=== PATIENT | male | born 1955 | race Caucasian/White ===

== ENCOUNTER → 2020-03-13 12:03 | Outpatient (CLI) | payer MEDICARE, SELFPAY ==
--- NOTE | 2020-03-21 17:06 | STRESSREP ---
Stress Test Report Date: 03/13/2020 Procedure: Exercise tolerance test Indications: Chest pain Consent: Per the patient Procedure: The patient exercised on a Rafa protocol for 10 minutes and 3 seconds achieving a peak heart rate of 162 bpm (103% predicted maximal heart rate) with a peak blood pressure 148/70 mmHg and a peak MET capacity of approximately 11.8 MET's. The baseline ECG demonstrated normal sinus rhythm, right bundle branch block. The peak exercise ECG demonstrated sinus tachycardia with no significant ST-T changes suggestive of ischemia. [There were no cardiac dysrhythmias pretest, during exercise, or recovery]. The functional capacity was considered excellent for age. The patient had chest tightness with exertion that resolved in the recovery period. The examination was discontinued secondary to achieving target heart rate. Patient also had moderate shortness of breath and dizziness at peak exercise. Impression: 1. Technically adequate (percent predicted maximal heart rate greater than 85%) exercise tolerance test 2. Stress test is positive for exercise-induced chest pain. 3. Stress test test is negative for exercise-induced EKG changes of ischemia. 4. Functional capacity is excellent for age This note was generated with [employer] software. It may contain incorrect words, spelling, and punctuation that were not noted in checking the note before signing.
== END ==
PROVIDERS: PCP Internal Medicine; Referring Provider Internal Medicine; Visit Provider Internal Medicine
DX: R07.9 Chest pain, unspecified (principal)
CPT/HCPCS: 93017

== ENCOUNTER → 2020-05-12 06:51 | Outpatient (CLI) | payer MEDICARE, SELFPAY ==
--- NOTE | 2020-05-13 12:30 | STRESSREP_ITS ---
Stress Test Report Date: 05/12/2020 Procedure: Exercise tolerance test/imaging study Indications: Chest pain Consent: Per the patient Procedure: The patient exercised on a Rafa protocol for 8 minutes and 30 seconds achieving a peak heart rate of 136 bpm (87% predicted maximal heart rate) with a peak blood pressure 132/64 mmHg and a peak MET capacity of 10.1 METs. The baseline ECG demonstrated normal sinus rhythm, right bundle branch block. The peak exercise ECG demonstrated sinus tachycardia with about half a millimeter horizontal ST depressions in leads V2 and V3 and about [address] depression in V1. There is also T wave inversions in leads V2 and V3 with exercise. The T wave inversions are a nonspecific finding. The ST depression in V1 to V3 is borderline and in the presence of right bundle branch block not very specific. EKG during recovery revealed no significant ischemic changes [There were no cardiac dysrhythmias pretest, during exercise, or recovery]. The functional capacity was considered normal for age. Patient had mild chest discomfort in the mid chest at peak exertion. The examination was discontinued secondary to dyspnea. Impression: 1. Technically adequate (percent predicted maximal heart rate greater than 85%) exercise tolerance test 2. Stress test is negative for exercise-induced EKG changes of ischemia 3. The test test is positive for exercise-induced chest pain 4. Functional capacity is normal for age 5. Nuclear images pending Myocardial perfusion imaging study: Technique: The patient was injected with 11.2 mCi of technetium 99m Cardiolite and subsequently rest SPECT Cardiolite nuclear imaging was obtained in the horizontal long, vertical long, and short axis views. The patient exercised on a Rafa protocol. Please see above for details. The patient was injected with 33.5 mCi of technetium 99m Cardiolite and subsequently stress SPECT Cardiolite nuclear imaging was obtained in the horizontal long, vertical long, and short axis views. A gated Cardiolite study at peak stress was obtained. Interpretation: Rest and stress SPECT Cardiolite nuclear imaging status post realignment, normalization, and attenuation correction, demonstrates overall normal myocardial radioisotope uptake. The gated Cardiolite study demonstrates no significant regional wall motion abnormalities. The reported LVEF is 69%. Impression: 1. There is no evidence of significant ischemia or infarction. 2. The gated Cardiolite study reports an LVEF of 69%. This note was generated with [employer] software. It may contain incorrect words, spelling, and punctuation that were not noted in checking the note before signing.
== END ==
PROVIDERS: PCP Internal Medicine; Referring Provider Internal Medicine; Visit Provider Internal Medicine
DX: R07.9 Chest pain, unspecified (principal); R00.2 Palpitations
CPT/HCPCS: 78452; 93017; A9500; A4216

== ENCOUNTER 2020-06-09 12:44 | Emergency (ER) | payer MEDICARE, SELFPAY ==
[2020-06-09 12:45] VITALS: BP 129/81; PULSE 58; RESP 18; TEMP 35.7; O2SAT 99; BMI 24.5
[2020-06-09 13:28] LABS: Bacteria 0 SEEN /hpf (None Seen); Mucous, Urine 0 SEEN /hpf (<or=2+); Squamous Epithelial Cells - UA 0 SEEN /hpf (0-5)
[2020-06-09 13:30] LABS: Color, Urine Yellow (Yellow); Glucose, Dipstick Normal (Normal); Ketone-Dipstick Negative (Negative); Leukocyte Esterase-Dipstick 25 /ul (Negative); Nitrite-Dipstick Negative (Negative); Occult Blood-Urine 250 /ul (Negative); Protein-Dipstick 15 mg/dl (Negative); Urine Bilirubin Dipstick Negative (Negative); Urine Clarity Sl. Cloudy (Clear); Urine Urobilinogen Normal (Normal)
[2020-06-09] MEDS: Ondansetron 4 MG/2 ML Vial IV ×2 (13:38→14:42)
[2020-06-09 13:40] LABS: Red Blood Cells-Urine 25-50 SEEN /hpf (0-5); White Blood Cells 0-5 SEEN /hpf (0-5)
[2020-06-09] MEDS: 0.9% Normal Saline 1,000 ML 125 ML IV (13:40)
[2020-06-09] MEDS: Ketorolac 15 MG/ML Vial IV (13:40)
[2020-06-09 13:49] LABS: Absolute Lymphocyte Count 2.91 X10^3/uL (0.83-4.51); Absolute Neutrophil Count 3.4 X10^3/uL (2.0-7.7); Basophil# 0.05 X10^3/uL; Basophil% 0.7 % (0-1); Eosinophil# 0.22 X10^3/uL; Hemoglobin 13.1 g/dL (13.0-16.5); Lymphocyte # 2.91 X10^3/ul (4.0); Lymphocyte % 39.9 % (19-41); Mean Corp Hgb Conc 33.6 g/dL (32-36); Mean Corpuscular Hgb 31.9 pg (27.0-32.0); Mean Corpuscular Volume 94.9 fL (80-94); Mean Platelet Vol. 10.4 fl (6.2-12.0); Monocyte# 0.69 X10^3/uL; Monocyte% 9.5 % (0-10); NRBC Flagged by Analyzer 0 % (0-5); Neutrophil # 3.41 X10^3/uL (2.7-7.7); Neutrophil % 46.6 % (47-70); Platelet Count 192 K/mm3 (150-450); RBC Distribution Width CV 12.6 % (11.6-14.6); Red Blood Count 4.11 M/mm3 (4.6-6.2); White Blood Count 7.3 K/mm3 (4.4-11.0)
--- NOTE | 2020-06-09 13:50 | CT_ITS ---
STUDY: CT ABDOMEN AND PELVIS WITHOUT CONTRAST REASON FOR EXAM: Male, 64 years old. RT FLANK PAIN X 2 HRS. HX OF [place] RADIATION DOSAGE (If Supplied By Facility): CTDIvol = ( 6.63 ) mGy, DLP = ( 336.19 ) mGycm TECHNIQUE: Transaxial images were obtained from the dome of the diaphragm to the symphysis pubis without oral contrast, and without intravenous contrast. Sagittal and coronal images were reconstructed. Individualized dose optimization techniques were used for this CT. COMPARISON: Comparison is made with prior study dated 12/08/2015. FINDINGS: Tiny calcified granuloma in the anterior aspect of the right lower lobe. The visualized portions of the heart are within normal limits. Normal liver. Normal gallbladder and extrahepatic biliary system. There are multiple benign calcified granulomata of the spleen. Normal pancreas. Normal bilateral adrenal glands. 3 small nonobstructive calculi are seen in the upper pole calyx of the right kidney. There is evidence of a 3 mm calculus in the proximal portion of the right ureter. Normal left kidney. Normal visualized stomach. Normal small intestine. Normal colon. The appendix is visualized and appears normal. There is scattered atherosclerotic calcification of the abdominal aorta, without a demonstrated aneurysm. Normal inferior vena cava. Normal retroperitoneum. Normal urinary bladder. There are central prostatic calcifications. There is a small umbilical hernia containing fat. There are mild degenerative changes of the visualized lumbar spine. CT/Abdomen/Pelvis without Cont IMPRESSION: 3 mm calculus in the proximal portion of the right ureter. 3 small nonobstructive calculi are seen in the upper pole calyx right kidney. Electronically Signed: Gómez Chopra, at 14:04 EST , Service support ,
[2020-06-09 14:02] LABS: Anion Gap 4 (5-15); BUN 16 mg/dL (7-18); BUN/Creat Ratio 13.9 RATIO (10-20); Calcium,Total 8.9 mg/dL (8.5-10.1); Chloride 110 mmol/L (98-107); Creatinine, Serum 1.15 mg/dL (0.70-1.30); EST Glomerular Filtration Rate 68 mL/min (>60); Est Glom Filt Rate - Afr Amer 82 mL/min (>60); Estimated Creatinine Clearance 62.78 ml/min; Glucose 87 mg/dL (74-106); Potassium 4.1 mmol/L (3.5-5.1); Sodium Level 141 mmol/L (136-145)
[2020-06-09] MEDS: Morphine 4 MG/ML Syringe IV (14:44)
[2020-06-09 14:45] VITALS: BP 125/79
--- NOTE | 2020-06-09 14:58 | ED.VISSUMM ---
- ER Visit Summary Date of Service: 06/09/20 Chief Complaint: [Right-sided flank pain] History of Present Illness: The patient is a 64 M [presents to the emergency department complaint of right-sided flank pain that started 2 hours ago. Patient states that he is noted some hematuria today. He has had some nausea with this pain. Patient did have history of kidney stones about 10 years ago. At that time patient had an 8 mm stone that required a stent being placed. Patient currently rates his pain a 7 out of 10. Patient denies any fevers. He denies recent illness.] Seen at urgent care initially today and referred to the emergency department. Physical Examination: [HEENT-PERRLA, EOMI. Cranial nerves II through XII grossly intact. TMs clear. Mucous membranes moist. No adenopathy. Cardiovascular-regular rate and rhythm without murmur or ectopy Lungs-clear to auscultation, chest wall stable without crepitus or subcu emphysema Abdomen-normoactive bowel sounds, soft. Patient has tenderness palpation over the right lower quadrant with some guarding. Patient has CVA tenderness on the right. There is no rebound, rigidity, or peritoneal signs. Extremities-intact ?4, normal range of motion, normal pulses, atraumatic] Test Results: [CBC with differential showing a 7.3, hemoglobin 13, hematocrit 39, plates 192. Chemistries unremarkable. Urinalysis showed 25-50 RBCs without signs of infection. CT flank showed a 3 mm kidney stone at the left proximal ureter.] Emergency Department Course and Treatment: [The line established on arrival. Patient was given Toradol 50 mg IV initially. Patient continues to have significant discomfort and was given 4 mg of morphine and 4 mg of Zofran. His pain is down to a 3 or 4 out of 10 currently.] Treatment Plan: [Patient will be given a prescription for Percocet and urine strainers. He will be referred to urology for follow-up. Based on the size of the stone he has a good chance of passing the stone. Patient advised to return if worsening pain, fever, vomiting, or condition should worsen anyway. Disposition: [Discharged home in stable condition] Impression: [Urolithiasis] This note was generated with [employer] software. It may contain incorrect words, spelling, and punctuation that were not noted in review of the chart prior to signing ED Disposition - Plan for ED Patient: Referrals: Aliyah Caballero MD [Primary Care Provider] -
--- NOTE | 2020-06-09 15:00 | ED.DEP ---
ED Disposition - Plan for ED Patient: Instructions: ED Kidney Stone w/ Colic Prescriptions: Oxycodone HCl/Acetaminophen [Percocet 5/325] 1 tab PO Q6H PRN PRN 5 Days #20 tab PRN Reason: Pain Score 6-10 Prescription Printed Referrals: Aliyah Caballero MD [Primary Care Provider] - Adam Horton MD [STAFF PHYSICIAN] - 3-5 Days
[2020-06-09 16:23] VITALS: BP 96/67; RESP 20
== END 2020-06-09 16:25 | disposition home or self-care (01) ==
LOC: ED 13:17
PROVIDERS: Emergency Provider Emergency Medicine; PCP Internal Medicine
DX: N20.1 Calculus of ureter (principal); Z87.442 Personal history of urinary calculi
CPT/HCPCS: 74176; 80048; 81001; 85025; 96361; 96374; 96375; 96376; 99283; J7030; A4216; J2405

== ENCOUNTER → 2020-06-26 15:15 | Outpatient (CLI) | payer MEDICARE, SELFPAY ==
[2020-06-09 12:45] VITALS: BMI 24.5
--- NOTE | 2020-06-26 15:19 | RAD_ITS ---
STUDY: X-RAY - ABDOMEN/PELVIS REASON FOR EXAM: Male, 64 years old. PAIN RIGHT SIDE, KNOWN KIDNEY STONE TECHNIQUE: Single AP view of the abdomen / pelvis. COMPARISON: CT 06/09/2020 FINDINGS: Normal visualized lung bases. There is an unremarkable bowel gas pattern. The visualized liver, spleen and kidneys are grossly normal in size and morphology. There are calcified phleboliths in the pelvis. Normal visualized osseous structures. RAD/Abdomen Single View IMPRESSION: Normal x-ray examination of the abdomen and pelvis. No definite renal or ureteral stone but there are multiple phleboliths in the pelvis. Electronically Signed: Segun Retana MD at 16:54 EST Tel , Service support ,
== END ==
PROVIDERS: PCP Internal Medicine; Referring Provider Nurse Practitioner Adult Health; Visit Provider Nurse Practitioner Adult Health
DX: N20.1 Calculus of ureter (principal)
CPT/HCPCS: 74018

== ENCOUNTER 2020-06-27 00:50 | Inpatient (IN) | payer MEDICARE, SELFPAY ==
[2020-06-27] VITALS (8 sets, daily range): BP systolic 88–137; BP diastolic 56–86; PULSE 54–81; RESP 16–18; TEMP 36–37; O2SAT 90–99; BMI 25.0; BMI 24.7; BMI 24.8
[2020-06-27 01:11] LABS: Absolute Lymphocyte Count 3.16 X10^3/uL (0.83-4.51); Absolute Neutrophil Count 2.6 X10^3/uL (2.0-7.7); Basophil# 0.04 X10^3/uL; Basophil% 0.6 % (0-1); Eosinophil# 0.37 X10^3/uL; Eosinophils% 5.2 % (0-5); Hematocrit 41.1 % (40-54); Hemoglobin 13.9 g/dL (13.0-16.5); Lymphocyte # 3.16 X10^3/ul (4.0); Lymphocyte % 44.3 % (19-41); Mean Corp Hgb Conc 33.8 g/dL (32-36); Mean Corpuscular Hgb 32.3 pg (27.0-32.0); Mean Corpuscular Volume 95.4 fL (80-94); Mean Platelet Vol. 10.1 fl (6.2-12.0); Monocyte# 0.93 X10^3/uL; NRBC Flagged by Analyzer 0 % (0-5); Neutrophil # 2.63 X10^3/uL (2.7-7.7); Neutrophil % 36.8 % (47-70); Platelet Count 207 K/mm3 (150-450); RBC Distribution Width CV 12.4 % (11.6-14.6); RBC Distribution Width SD 43.7 fl (35.1-43.9); Red Blood Count 4.31 M/mm3 (4.6-6.2); White Blood Count 7.1 K/mm3 (4.4-11.0)
[2020-06-27 01:11] LABS: Bacteria 0 SEEN /hpf (None Seen); Mucous, Urine 0 SEEN /hpf (<or=2+)
[2020-06-27 01:12] LABS: Color, Urine Yellow (Yellow); Glucose, Dipstick Normal (Normal); Ketone-Dipstick Negative (Negative); Leukocyte Esterase-Dipstick 25 /ul (Negative); Nitrite-Dipstick Negative (Negative); Occult Blood-Urine 250 /ul (Negative); Protein-Dipstick 30 mg/dl (Negative); Urine Bilirubin Dipstick Negative (Negative); Urine Clarity Sl. Cloudy (Clear); Urine Urobilinogen 1 mg/dl (Normal)
[2020-06-27 01:18] LABS: Red Blood Cells-Urine 25-50 SEEN /hpf (0-5); Squamous Epithelial Cells - UA 0-5 SEEN /hpf (0-5); White Blood Cells 5-10 SEEN /hpf (0-5)
--- NOTE | 2020-06-27 01:25 | ED.DCSUM_ITS ---
History of Present Illness Chief Complaint: Flank Pain Informant: Patient Onset: Today Context: Gradual Onset Timing: Continuous, Waxes and wanes Narrative: Patient is a 64-year-old male with recent diagnosis of right-sided 3 mm obstructing kidney stone 2 weeks ago presenting with worsening right-sided flank pain. He states for 10 days he was actually doing fine not having pain when yesterday his pain came back again. He followed up at his urologist office and was told if the pain becomes too severe he should come to the emergency room. Patient states the pain is now lower and more in his right lower abdomen r adiating to his testicles. It was in his back only before. He is having some mild hesitancy and hematuria. He denies any dysuria. He tried taking 2 x 5 mg Percocets earlier today with no relief of his pain so he came to the emergency room. He also had some nausea and took Zofran prior to arrival. Patient Nu[place] any fever or chills. He denies any chest pain, shortness breath difficulty breathing. Denies any changes bowel habits. No other complaints at this time. Past Medical History - Allergies and Home Meds Allergies/Adverse Reactions: Allergies Penicillins Allergy (Verified 06/09/20 12:47) [facility] [place] Primary Care Physician: Aliyah Caballero MD [Primary Care Provider] - Past Medical History: - - Kidney stones Lives: Spouse/ Significant Other Smoking Status: Current every day smoker Review of Systems General: Denies: Chills, Fever, Sweats Eyes: Denies: Visual changes - bilaterally, Diplopia ENT: Denies: Rhinorrhea, Sore throat Cardiovascular: Denies: Chest pain, Palpitations Respiratory: Denies: Dyspnea, Cough, Dyspnea on exertion Gastrointestinal: Reports: Abdominal pain, Nausea. Denies: Vomiting, Diarrhea, Melena, Hematochezia Genitourinary: Reports: Hematuria. Denies: Dysuria, Frequency Musculoskeletal: Denies: Back pain, Extremity Pain Skin: Denies: Rash, Wounds Neurological: Denies: Headache, Weakness, Numbness Physical Exam Vital Signs/Narrative: Vital Signs Temp Pulse Resp BP Pulse Ox 06/27/20 00:50 97.8 F 55 L 16 119/86 H 99 Inital Vital Signs reviewed: Yes General: Well nourished, Well developed, No Acute Distress, - - Uncomfortable appearing Head: Normocephalic, Atraumatic Eyes: Perrl, EOMI ENT: Moist mucous membranes, No rhinorrhea Neck: Supple, Nontender, No JVD Cardiovascular: Regular rate, Regular rhythm, No murmurs Respiratory: No distress, CTA bilaterally, Chest nontender Abdomen: Soft, Nontender, Nondistended, Normal bowel sounds. Negative for: Guarding, Rebound tenderness Back: Nontender, Normal Inspection. Negative for: CVA tenderness Extremities: Nontender, No edema Skin: Normal color, No rash Neurological: Alert, Oriented x3, Cranial nerves II-XII grossly intact, Normal Strength, Normal Sensation Psychological: Normal affect, Normal Mood Diagnostic/Tx/Re-eval Laboratory Data 06/27/20 06/27/20 06/27/20 00:50 00:50 01:05 WBC 7.1 RBC 4.31 L Hgb 13.9 Hct 41.1 MCV 95.4 H MCH 32.3 H MCHC 33.8 RDW Std Deviation 43.7 RDW Coeff of Chago 12.4 Plt Count 207 MPV 10.1 Immature Gran % (Auto) 0.100 Neut % (Auto) 36.8 L Lymph % (Auto) 44.3 H [place] % (Auto) 13.0 H Eos % (Auto) 5.2 H Baso % (Auto) 0.6 Absolute Neuts (auto) 2.6 Absolute Lymphs (auto) 3.16 Nucleated RBC % 0 Sodium 138 Potassium 3.9 Chloride 104 Carbon Dioxide 30.0 Anion Gap 4 L BUN 21 H Creatinine 1.18 Estim Creat Clear Calc 59.13 Est GFR (MDRD) Af Amer 80 Est GFR (MDRD) Non-Af 66 BUN/Creatinine Ratio 17.8 Glucose 93 Calcium 9.4 Urine Color Yellow Urine Clarity Sl. Cloudy Urine pH 6.0 Ur Specific [place] 1.020 Urine Protein 30 H Urine Glucose (UA) Normal Urine Ketones Negative Urine Occult Blood 250 H Urine Nitrite Negative Urine Bilirubin Negative Urine Urobilinogen 1 H Ur Leukocyte Esterase 25 H Urine RBC 25-50 SEEN Urine WBC 5-10 SEEN Ur Squamous Epith Cells 0-5 SEEN Urine Bacteria 0 SEEN Urine Mucus 0 SEEN - Medical Decision Making Evaluated for sudden onset right flank pain. He was recently diagnosed with a kidney stone and his pain is now migrated from his back and is more in his lower abdomen/groin. Patient tried taking Percocet at home but was not able to achieve adequate pain control so he came to the emergency room. He is hemodynamically stable. He has good distal pulses. Abdomen is soft and nontender. Is not have any peritoneal signs. Patient is given morphine for pain control. Urinalysis shows significant blood and consistent with ureterolithiasis. Patient is also given IV fluids and Toradol. He does require her second dose of morphine. Patient states his pain is suddenly gone shortly after this and feels that the stone is now passed into his bladder. Patient is counseled that that is a possibility however the stone could still be in his ureter. Is 3 mm and should pass spontaneously. Do not think repeat imaging is indicated at this time. He will follow-up with his urologist. Patient did drive here and is observed for at least 2 hours after receiving his last dose of morphine to ensure that he is safe to drive home. Patient is acting appropriately and does not seem impaired at all. Patient is counseled on signs and symptoms requiring return to the emergency room. Patient verbalizes agreement and understand this plan. Patient discharged home in stable and improved condition. ED Disposition - Plan for ED Patient: Disposition: Home or Assisted Living Diagnosis: Kidney stone on left side Instructions: ED Kidney Stone w/ Colic Referrals: Aliyah Caballero MD [Primary Care Provider] - Additional Instructions: I suspect your stone passed given how far down it was and your sudden resolution of symptoms. Please follow-up with your urologist as needed. Return the emergency room with any worsening symptoms.
[2020-06-27] MEDS: Ketorolac 15 MG/ML Vial IV (01:26)
[2020-06-27] MEDS: 0.9% Normal Saline 1,000 ML 999 ML IV (01:26)
[2020-06-27 01:27] LABS: Anion Gap 4 (5-15); BUN 21 mg/dL (7-18); BUN/Creat Ratio 17.8 RATIO (10-20); Calcium,Total 9.4 mg/dL (8.5-10.1); Chloride 104 mmol/L (98-107); Creatinine, Serum 1.18 mg/dL (0.70-1.30); EST Glomerular Filtration Rate 66 mL/min (>60); Est Glom Filt Rate - Afr Amer 80 mL/min (>60); Estimated Creatinine Clearance 59.13 ml/min; Glucose 93 mg/dL (74-106); Potassium 3.9 mmol/L (3.5-5.1); Sodium Level 138 mmol/L (136-145)
[2020-06-27] MEDS: Morphine 4 MG/ML Syringe IV ×2 (01:27→02:07)
--- NOTE | 2020-06-27 12:02 | PCM.HP.BLA ---
History and Physical Date of Admission: 06/27/20 I have ureteral stone. HPI: IVORY CERNA is a 64 year-old male established patient who is here for ureteral stone. The problem is on the right side. He first noticed the symptoms 1 month ago. This is not his first kidney stone. He is currently having flank pain and back pain. He denies having groin pain, nausea, vomiting, fever, and chills. Pain is occuring on the right side. He has never had surgical treatment for calculi in the past. He has not caught a stone in his urine strainer since his symptoms began. The stone is in The mid ureter. The stone is 3 mm . severe pain will admit to hospital ALLERGIES: Hay Fever Penicillin MEDICATIONS: Zyrtec 10 mg tablet 1 tablet PO Daily PRN Amlodipine Besylate 5 mg tablet 1 tablet PO Daily Aspirin Ec 81 mg tablet, delayed release 1 tablet PO Daily Atorvastatin Calcium 40 mg tablet 1 tablet PO Daily Cyclobenzaprine Hcl 10 mg tablet 1 tablet PO Q HS Gabapentin 300 mg capsule 2 capsule PO Q HS Ibuprofen 200 mg capsule 1 capsule PO Daily PRN Levothyroxine Sodium 100 mcg tablet 1 tablet PO Daily Ondansetron Odt 8 mg tablet,disintegrating 1 tablet PO BID PRN for nausea Oxycodone-Acetaminophen 5 mg-325 mg tablet 1 tablet PO Q 6 H PRN N20.1 ureteral stone pain, 3 days worth Pantoprazole Sodium 40 mg tablet, delayed release 1 tablet PO Daily Vitamin B12 1 PO Daily Vitamin D3 1 PO Daily PAST SURGICAL HISTORY: Colonoscopy Pneumococcal Vaccine Admin PAST MEDICAL HISTORY: Unspecified abdominal pain - 06/26/2020 Calculus of ureter - 06/12/2020 Actinic keratosis Age-related osteoporosis w/o current pathological fracture Alcohol abuse, uncomplicated Carpal tunnel syndrome, left upper limb Celiac disease Hyperlipidemia, unspecified Hypothyroidism, unspecified Male erectile dysfunction, unspecified Nontoxic multinodular goiter Other specified arthritis, unspecified site Raynaud's syndrome without gangrene Squamous cell carcinoma of skin, unspecified Ulcerative (chronic) proctitis with rectal bleeding Unspecified hearing loss, unspecified ear Immunizations: None FAMILY HISTORY: None SOCIAL HISTORY: Marital Status: Preferred Language: Vietnamese Current Smoking Status: Patient smokes. Tobacco Use Assessment Completed: Used Tobacco in last 30 days? Smoking cessation counseling was provided. Does not use smokeless tobacco. Does drink. Does not use drugs. Drinks 2 caffeinated drinks per day. Has not had a blood transfusion. REVIEW OF SYSTEMS: Constitutional: Patient denies fever, chills, weight loss, and weight gain. Gastrointestinal: Patient reports abdominal pain. Patient denies diarrhea, constipation, nausea, and vomiting. Genitourinary: Patient reports blood in the urine. Patient denies frequent urination, urinary retention, get up at night to void, leakage of urine, painful urination, frequent uti's, history of stones, difficulty starting stream, weak stream/scanty, and bedwetting. Musculoskeletal: Patient reports back pain. Patient denies gout. VITAL SIGNS: 06/27/2020 10:39 AM Weight 160 lb / 72.57 kg Height 67 in / 170.18 cm BP 100/80 mmHg BMI 25.1 kg/m? - BMI Counseling was provided. PHYSICAL EXAM: Constitutional: Well-nourished. No physical deformities. Normally developed. Good grooming. Neck: Neck symmetrical, not swollen. Normal tracheal position. Respiratory: No labored breathing, no use of accessory muscles. Cardiovascular: Normal temperature, normal extremity pulses, no swelling, no varicosities. Lymphatic: No enlargement of neck, axillae, groin. Skin: No paleness, no jaundice, no cyanosis. No lesion, no ulcer, no rash. Neurologic / Psychiatric: Oriented to time, oriented to place, oriented to person. No depression, no anxiety, no agitation. Gastrointestinal: No mass, no tenderness, no rigidity, non obese abdomen. Eyes: Normal conjunctivae. Normal eyelids. Ears, Nose, Mouth, and Throat: Left ear no scars, no lesions, no masses. Right ear no scars, no lesions, no masses. Nose no scars, no lesions, no masses. Normal hearing. Normal lips. Musculoskeletal: Normal gait and station of head and neck. PAST DATA REVIEWED: Source Of History: Patient Records Review: Previous Patient Records Urine Test Review: Urinalysis PROCEDURES: Notes: Having trouble urinating. No U/A. ASSESSMENT: ICD-10 Details 1 Calculus of ureter - N20.1 PLAN: Document Letter(s): Created for Patient: Clinical Summary Notes: had negative nuclear stress test had abnormal EKG admit to hospital for stone and plan to take to Surgery.
[2020-06-27] MEDS: oxyCODONE 5 MG Tablet PO (12:44)
[2020-06-27] MEDS: 0.9% Normal Saline 1,000 ML 75 ML IV ×2 (12:44→22:51)
[2020-06-27] MEDS: Ciprofloxacin 400 MG/200 ML BAG 200 MG IV ×2 (12:49→22:05)
[2020-06-27] MEDS: 0.9% Saline Lock 10 ML Syringe IV (12:52)
--- NOTE | 2020-06-27 16:17 | NURSING ---
DR. GARCIA PAGED REGARDING BP PT DOES REPORT DIZZINESS. PER PT THIS HAS BEEN ONGOING AND HAVING EPISODES OF INABILITY TO AMBULATE BC DIZZINESS AT HOME. STATES WAS SEEING A DR. MOORE SWITCHGEAR REPAIRER AT [facility]. AWARE PER DR. GARCIA'S OFFICE PT WAS SUPPOSE TO HAVE TEST DONE TOMORROW WITH HIS SWITCHGEAR REPAIRER.
[2020-06-27] MEDS: Lactated Ringers 1,000 ML 999 ML IV (19:52)
[2020-06-27] MEDS: Gabapentin 600 MG Tablet PO (22:50)
[2020-06-28] VITALS (13 sets, daily range): BP systolic 98–119; BP diastolic 59–85; PULSE 52–97; RESP 16–18; TEMP 36.3–37.1; O2SAT 94–100; BMI 24.7; BMI 24.8
--- NOTE | 2020-06-28 05:00 | EKG12_ITS ---
Test Reason : PRE-OP Blood Pressure : / mmHG Vent. Rate : 057 BPM Atrial Rate : 057 BPM P-R Int : 172 ms QRS Dur : 086 ms QT Int : 436 ms P-R-T Axes : 076 019 061 degrees QTc Int : 424 ms Sinus bradycardia Indeterminate axis Low voltage QRS Borderline ECG Confirmed by GELY BATISTA, MINOO ([id number]), film and video editor ELDER MCFARLAND ([id number]) on 06/29/2020 9:58:05 AM Referred By: RADHA Confirmed By:MINOO HONG MD
[2020-06-28 06:55] LABS: Absolute Lymphocyte Count 2.48 X10^3/uL (0.83-4.51); Absolute Neutrophil Count 2.7 X10^3/uL (2.0-7.7); Basophil# 0.04 X10^3/uL; Basophil% 0.6 % (0-1); Eosinophil# 0.33 X10^3/uL; Eosinophils% 5.1 % (0-5); Hematocrit 39.6 % (40-54); Hemoglobin 12.9 g/dL (13.0-16.5); Lymphocyte # 2.48 X10^3/ul (4.0); Lymphocyte % 38.6 % (19-41); Mean Corp Hgb Conc 32.6 g/dL (32-36); Mean Corpuscular Hgb 31.5 pg (27.0-32.0); Mean Corpuscular Volume 96.8 fL (80-94); Mean Platelet Vol. 9.9 fl (6.2-12.0); Monocyte# 0.83 X10^3/uL; Monocyte% 12.9 % (0-10); NRBC Flagged by Analyzer 0 % (0-5); Neutrophil # 2.74 X10^3/uL (2.7-7.7); Neutrophil % 42.6 % (47-70); Platelet Count 188 K/mm3 (150-450); RBC Distribution Width CV 12.6 % (11.6-14.6); RBC Distribution Width SD 45.5 fl (35.1-43.9); Red Blood Count 4.09 M/mm3 (4.6-6.2); White Blood Count 6.4 K/mm3 (4.4-11.0)
--- NOTE | 2020-06-28 07:08 | CT_ITS ---
STUDY: CT ABDOMEN AND PELVIS WITHOUT CONTRAST REASON FOR EXAM: Male, 64 years old. RIGHT FLANK PAIN. KNOWN STONE 2 WEEKS AGO RADIATION DOSAGE (If Supplied By Facility): CTDIvol = ( 6.64 ) mGy, DLP = ( 330.36 ) mGycm TECHNIQUE: Transaxial images were obtained from the dome of the diaphragm to the symphysis pubis without oral contrast, and without intravenous contrast. Sagittal and coronal images were reconstructed. Individualized dose optimization techniques were used for this CT. COMPARISON: Comparison is made with prior study dated 06/09/2020. FINDINGS: Pectus excavatum deformity. Small calcified granuloma in the anterior aspect of the right lower lobe. The visualized portions of the heart are within normal limits. Normal liver. Normal gallbladder and extrahepatic biliary system. There are multiple benign calcified granulomata of the spleen. Normal pancreas. Normal bilateral adrenal glands. There is a mild degree of right hydronephrosis and the right hydroureter due to a 3.3 mm calculus in the distal one third of the right ureter. 2 mm calculus in the upper pole calyx of the right kidney. Normal left kidney. Normal visualized stomach. Normal small intestine. Normal colon. The appendix is visualized and appears normal. There is scattered atherosclerotic calcification of the abdominal aorta, without a demonstrated aneurysm. Normal inferior vena cava. Normal retroperitoneum. Normal urinary bladder. There is a small umbilical hernia containing fat. There are mild degenerative changes of the visualized lumbar spine. CT/Abdomen/Pelvis without Cont IMPRESSION: 3.3 mm calculus in the distal one third of the right ureter causing right sided hydronephrosis and hydroureter. Electronically Signed: Gómez Chopra MD at 9:06 EST , Service support ,
[2020-06-28] MEDS: oxyCODONE 5 MG Tablet PO ×4 (07:30→19:35)
[2020-06-28 07:42] LABS: Anion Gap 2 (5-15); BUN 18 mg/dL (7-18); BUN/Creat Ratio 13.7 RATIO (10-20); Calcium,Total 8.5 mg/dL (8.5-10.1); Chloride 112 mmol/L (98-107); Creatinine, Serum 1.31 mg/dL (0.70-1.30); EST Glomerular Filtration Rate 58 mL/min (>60); Est Glom Filt Rate - Afr Amer 71 mL/min (>60); Estimated Creatinine Clearance 53.26 ml/min; Glucose 96 mg/dL (74-106); Potassium 4.6 mmol/L (3.5-5.1); Sodium Level 142 mmol/L (136-145)
[2020-06-28] MEDS: Levothyroxine 100 MCG Tablet PO (08:29)
[2020-06-28] MEDS: Ciprofloxacin 400 MG/200 ML BAG 200 MG IV (09:22)
[2020-06-28] MEDS: Morphine 2 MG/ML Syringe IV ×2 (09:59→16:52)
[2020-06-28] MEDS: 0.9% Saline Lock 10 ML Syringe IV ×3 (09:59→18:42)
--- NOTE | 2020-06-28 11:40 | NURSING ---
RN CM Assessment Introduced role of RN CM to patient and Raquel at bedside.? Patient is alert, oriented and able?to participate in RN CM Assessment. ?Care providers, pharmacy, and demographics verified. Admit Dx: Rt Kidney Stone Re-Admit: No Barriers/Issues: None. Patient up walking around with no issues noted. PCP: Aliyah Caballero Specialists: Cardio- Dr Castro, Ortho- Dr Salgado Preferred Pharmacy: [facility] for short course. [employer] [facility] order for snf. Insurance: [facility] Rx Benefit:?Yes LNOK: Raquel Tony LW/HPOA: States has a living will and gave to staff here to get a copy. HPOA Raquel Yoder and secondary- oldest son Maury Tony Jr Living Arrangements:? Loves with in a 2SH, bedroom on 2nd fl. 4 steps to enter home through the back. 5 steps to enter home through the front. ADL?s: Independent with ambulation, uses a 4 point cane sometimes as needed. Independent with ADLs. Transportation: Both patient and drive. will transport upon DC. DME: 4 point cane. HHC: None SNF: None Goal: Home and does not think will have any needs. Denies any issues, questions or concerns with DC planning at this time. Aware RNCM remains available should any needs arise. DC PLAN: Home with no anticipated needs identified at this time. ADRIANE Figueroa
[2020-06-28] MEDS: 0.9% Normal Saline 1,000 ML 75 ML IV ×2 (13:00→14:49)
--- NOTE | 2020-06-28 13:11 | PN_ITS ---
Patient Problems: Active and Suspected Problems Kidney stone on left side (Acute) Subjective: Repeat CAT scan confirms stone is still causing obstruction - Physical Exam Vitals/I&O's: Vital Signs Temp Pulse Resp BP Pulse Ox 98.8 F 52 L 18 106/66 98 06/28/20 11:42 06/28/20 11:42 06/28/20 11:42 06/28/20 11:42 06/28/20 11:42 Oxygen Delivery Method Room Air Weight: 71.696 kg Body Mass Index (BMI) 24.7 Intake and Output for Last 24 Hours 06/26/20 06/27/20 06/28/20 23:59 23:59 23:59 Intake Total 3580.00 / 3580.00 50 / 50 Output Total 550 / 1000 2425 / 2425 Balance 3030.00 / 2580.00 -2375 / -2375 General: Alert, Oriented x3, Cooperative HEENT: Atraumatic, PERRLA, EOMI, Normocephalic Neck: Supple, No JVD, Negative Carotid Bruits Lungs: Clear to auscultation, Normal air movement Cardiovascular: Regular rate, No murmurs Abdomen: Bowel Sounds Present, Soft, Non Tender Extremities: No edema, Capillary Refill Less than 3 Seconds Skin: No rashes, No breakdown Musculoskeletal: No Tenderness to Palpation of Joints or Extremities Neurological: Cranial nerves II-XII grossly intact Psych/Mental Status: Normal Affect, Appropriate Microbiology Past 72 Hours 06/27/20 16:10 Mucosa - Nasopharyngeal SARS-CoV-2 Antigen (Rapid) - Final Laboratory Results 06/28/20 06:46: WBC 6.4, RBC 4.09 L, Hgb 12.9 L, Hct 39.6 L, MCV 96.8 H, MCH 31.5, MCHC 32.6, RDW Std Deviation 45.5 H, RDW Coeff of Chago 12.6, Plt Count 188, MPV 9.9, Immature Gran % (Auto) 0.200, Neut % (Auto) 42.6 L, Lymph % (Auto) 38.6, [place] % (Auto) 12.9 H, Eos % (Auto) 5.1 H, Baso % (Auto) 0.6, Absolute Neuts (auto) 2.7, Absolute Lymphs (auto) 2.48, Nucleated RBC % 0 06/28/20 06:46: Sodium 142, Potassium 4.6, Chloride 112 H, Carbon Dioxide 28.0, Anion Gap 2 L, BUN 18, Creatinine 1.31 H, Estim Creat Clear Calc 53.26, Est GFR (MDRD) Af Amer 71, Est GFR (MDRD) Non-Af 58 L, BUN/Creatinine Ratio 13.7, Glucose 96, Calcium 8.5, TSH 13.20 H Current Medications Acetaminophen (Acetaminophen 325 Mg Tablet) 650 mg PO Q6H PRN PRN PRN Reason: Pain Score 1-10/Temp > 100.7 F Docusate Sodium (Docusate Sodium 100 Mg Capsule) 100 mg PO BID PRN PRN PRN Reason: Constipation Gabapentin (Gabapentin 600 Mg Tablet) 600 mg PO QHS [facility] Last Admin: 06/27/20 22:50 Dose: 600 mg Documented by: Guaifenesin (Guaifenesin 10 Ml Udc (200mg/10ml)) 20 ml PO Q4H PRN PRN PRN Reason: COUGH Sodium Chloride () 1,000 mls @ 75 mls/hr IV .[id number] [facility] Last Infusion: 06/27/20 23:05 Dose: 75 mls/hr Documented by: Ciprofloxacin (Cipro) 400 mg in 200 mls @ 200 mls/hr IV Q12 [facility] Stop: 07/04/20 12:31 Last Admin: 06/28/20 09:22 Dose: 200 mls/hr Documented by: Levothyroxine Sodium (Levothyroxine 100 Mcg Tablet) 100 mcg PO DAILY@0600 [facility] Last Admin: 06/28/20 08:29 Dose: 100 mcg Documented by: Morphine Sulfate (Morphine 2 Mg/Ml Syringe) 2 mg IV Q3H PRN PRN PRN Reason: Pain Score 6-10 Last Admin: 06/28/20 09:59 Dose: 2 mg Documented by: Nitroglycerin (Nitroglycerin (Inpatient Use) 0.4 Mg Tab.Subl) 0.4 mg SUBLINGUAL Q5M PRN PRN Reason: CARDIAC/CHEST PAIN Ondansetron HCl (Ondansetron 4 Mg/2 Ml Vial) 4 mg IV Q8H PRN PRN PRN Reason: NAUSEA/VOMITING Oxycodone HCl (Oxycodone 5 Mg Tablet) 5 mg PO Q4H PRN PRN PRN Reason: Pain Score 4-5 Last Admin: 06/28/20 11:30 Dose: 5 mg Documented by: Sodium Chloride (0.9% Saline Lock 10 Ml Syringe) 10 - 40 ml IV UD PRN PRN Reason: SALINE FLUSH Last Admin: 06/28/20 09:59 Dose: 10 ml Documented by: Zolpidem Tartrate (Zolpidem Tartrate 5 Mg Tablet) 5 mg PO QHS PRN PRN PRN Reason: INSOMNIA Medical Necessity - Tobacco Use Smoking Status: Current every day smoker Tobacco Use: Vapor Assessment/Plan All Active Problems Kidney stone on left side (Acute) 64-year-old male admitted for obstructing stone and renal colic CAT scan was done still has a stone obstructing the right systems organ to proceed with right ureteroscopy laser and stent.
--- NOTE | 2020-06-28 13:14 | PCM.DC.URO ---
Discharge Diet: Light diet - advance as tolerated Discharge Activity: Return to Normal Activity Instructions: ED Kidney Stone w/ Colic Allergies/Adverse Reactions: Allergies Penicillins Allergy (Verified 06/09/20 12:47) Hives Medications to take at Discharge Hydrocodone Bitart/Apap 5-325 [[place] 5/325] 1 - 2 tablet PO Q4H PRN PRN #20 tablet 06/09/15 Mesalamine [Asacol Hd] 800 mg PO TID #30 tablet. 06/09/15 Amlodipine Besylate [Norvasc] 5 mg PO DAILY 06/27/20 Aspirin E.C. [Ecotrin] 81 mg PO DAILY@0800 06/27/20 Cetirizine HCl [Zyrtec] 10 mg PO DAILY 06/27/20 Cholecalciferol (VIT D3) 125 mcg PO DAILY 06/27/20 Gabapentin [Neurontin] 600 mg PO QHS 06/27/20 Ibuprofen 200 mg PO PRN PRN 06/27/20 Levothyroxine [Synthroid] 100 mcg PO DAILY 06/27/20 Pantoprazole Sodium 40 mg PO DAILY 06/27/20 Ciprofloxacin [Cipro] 500 mg PO BID #6 tab 06/28/20 Hydrocodone Bitart/Apap 5-325 [[place] 5MG-325MG] 1 tablet PO Q4H PRN PRN 7 Days #10 tablet 06/28/20 The following prescriptions were given: Ciprofloxacin [Cipro] 500 mg PO BID #6 tab Transmission Status: Pending to [id number] Hydrocodone Bitart/Apap 5-325 [[place] 5MG-325MG] 1 tablet PO Q4H PRN PRN 7 Days #10 tablet PRN Reason: Pain Transmission [id number] Primary Care Physician: Aliyah Caballero MD [Primary Care Provider] - Test Results: Test results from this visit will be discussed in further detail at your follow-up appointment, if applicable. Please Follow Up With: Adam Horton MD When: please call to make an appointment.
--- NOTE | 2020-06-28 13:46 | PCM.OPRPT ---
Report of Operation Date of Procedure: 06/28/20 Pre-Operative Diagnosis: Right obstructive ureteral calculi Post-Operative Diagnosis: Same Surgery/Procedure Performed:: Cystoscopy, right retrograde pyelogram, balloon dilation of the right ureter, right ureteroscopy laser lithotripsy of stone, no stent placed. Description of Surgical Findings:: This is a patient who presents to the hospital for treatment for an obstructing distal right ureter calculi. I discussed with the patient how the surgery would be performed and we reviewed the risks and benefits of the surgery. The risk and benefits include the risk of failure to remove the stone completely and that the patient may need multiple procedures. We discussed the risk of an infection, the risk of bleeding. We discussed the very rare risk of serious complicated injury to the ureter. The patient understands that if the stone is not able to be removed safely that we may abort the procedure and place a stent. After full discussion and all questions address with the patient the consent form was signed the side was marked appropriately and the patient was taken back to the operating room for the procedure. The patient was taken back to the operating room. After induction of anesthesia by the anesthesiology team the patient was placed in dorsolithotomy position. The genitals were prepped and draped in usual sterile fashion. I went into the bladder with a 21 Martin[place] rigid cystourethroscope through the urethra. Upon entering the bladder I inspected the trigone the left and right ureteral orifice and the bladder itself. I then cannulated the right ureteral orifice and advanced a 0.038 Glidewire up into the kidney. Then over the Glidewire I advanced a 5 Fr Ureteral catheter and performed a retrograde pyelogram with about 10cc of contrast, to delineate the anatomy and identify the stone location. Then a ureteral balloon dilator was advanced over the wire and the distal ureter was balloon dilated with a 12 Fr x 5cm balloon dilator. After 3 minutes of dilating the ureter the balloon was backloaded off the 0.038 glidewire then the safety wire was left in place. I then placed a second 0.038 Guidewire as a working wire and over the working 0.038 guidewire I went in with the chito rigide 7.5fr ureteroscope. I was able to go inside with the 7.5Fr chito rigid utereroscope and I pulled out the working guidewire and then through the 7.5 fr simirigid ureteroscope I engage the stone in the distal ureter with laser lithotripsy using a 270miron laser fiber with energy setting of 6 Hertz and 0.6 J until the stone was lasered into tiny little pieces that should pass on their own. A retrograde pyelogram was performed with 10cc of contrast and no extravasation of contrast or perforation was identified in the ureter there was some mild irritation of the ureter where the stone was located. I then backed out of the ureter left the wire in place and and then remove the wire. I then drained the patient's bladder and the cystoscope was removed and the patient was taken back to the recovery room in good position. The patient was given discharge instructions to call the office for instructions on when to come to the office to have the stent removed. No stent was placed. Type of Anesthesia:: General Drains: none - Admit VTE Documentation VTE Present on Admission: No VTE Mechan Device Prophylaxis: SCD's
[2020-06-28] MEDS: Docusate Sodium 100 MG Capsule PO (16:52)
[2020-06-28] MEDS: Ondansetron 4 MG/2 ML Vial IV (18:42)
== END 2020-06-28 19:57 | disposition home or self-care (01) | DRG 694 ==
LOC: ED 03:09 → MS3 11:04
PROVIDERS: Admitting Provider Urology; Emergency Provider Emergency Medicine; PCP Internal Medicine; Visit Provider Urology
PROC: 0TJ98ZZ Inspection of Ureter, Via Natural or Artificial Opening Endoscopic (ICD-10-PCS; CPT 52352; principal; 2020-06-28 12:50)
DX: N20.2 Calculus of kidney with calculus of ureter (principal); E03.9 Hypothyroidism, unspecified; E78.5 Hyperlipidemia, unspecified; M81.0 Age-related osteoporosis without current pathological fracture; H91.90 Unspecified hearing loss, unspecified ear; K90.0 Celiac disease; F17.290 Nicotine dependence, other tobacco product, uncomplicated; Z85.828 Personal history of other malignant neoplasm of skin; Z87.442 Personal history of urinary calculi
CPT/HCPCS: 36415; 74018; 74176; 76000; 80048; 81001; 84443; 85025; 87086; 87426; 93005; 99284; 99406; J7030; J7120; A4216; C1769; J0744; J2405

== ENCOUNTER 2024-08-07 08:22 | Emergency (ER) | payer MEDICARE, OTHER, SELFPAY ==
[2024-08-07 08:24] VITALS: BP 126/84; PULSE 71; RESP 16; TEMP 36.4; O2SAT 98; BMI 26.2
--- NOTE | 2024-08-07 08:34 | EX.ED.DYSGE1 ---
HPI History of Present Illness Chief Complaint: Flank Pain Informant: patient Onset/Context/Timing Onset: Weeks (1) Context: Gradual Onset Timing: Continuous Quality: Burning, stabbing Location: Right flank Worsened by: Nothing Relieved by: Nothing Narrative Narrative: Patient presents with right flank and right inguinal pain that has been getting worse over the past week. Patient states it became worse today. Patient describes the pain as burning and stabbing. Patient states the pain is mainly over the right flank area and radiates into his right groin. Patient states he has noted some dark urine but has not noticed any dysuria. Patient does admit to some urinary urgency but denies any frequency. Patient denies any nausea or vomiting. Patient denies any fevers or chills. [facility] Medical History (Updated 08/07/24 @ 10:[address] Juan Pablo Durant, DO) Degenerative disc disease, lumbar Celiac disease Osteoporosis Hypothyroid Kidney stones Home Medications ?Medication ?Instructions ?Recorded ?Last Taken ?Type Cholecalciferol (VIT D3) 125 mcg PO DAILY SUPPLEMENT 06/27/20 06/26/20 21:30 History amlodipine 5 mg tablet (Norvasc) 5 mg PO DAILY REYNAULDS 06/27/20 06/26/20 21:30 History cetirizine 10 mg tablet 10 mg PO DAILY allergies 06/27/20 06/26/20 21:30 History gabapentin 600 mg tablet 600 mg PO QHS pain 06/27/20 06/26/20 21:30 History ibuprofen 200 mg tablet 200 mg PO PRN PRN pain 06/27/20 Unknown History levothyroxine 100 mcg tablet 100 mcg PO DAILY thyroid 06/27/20 06/27/20 04:30 History pantoprazole 40 mg tablet,delayed 40 mg PO DAILY Stomach 06/27/20 06/27/20 05:00 History release hydrocodone-acetaminophen 5-325mg 1 tab PO Q6H PRN PRN Pain 3 days 08/07/24 Unknown Rx 5mg-325mg #10 TABLETS tamsulosin 0.4 mg capsule 0.4 mg PO DAILY #7 CAPSULES 08/07/24 Unknown Rx Allergy/AdvReac Type Severity Reaction Status Date / Time Penicillins Allergy Hives Verified 08/07/24 08:23 gluten AdvReac Intermediate Abd Verified 08/07/24 08:23 cramps/diarrhea Surgical History no surgical history no surgical history Social History Smoking Status: Current every day smoker tobacco type: cigarettes and e-cigarettes ROS ROS ED Constitutional Constitutional ED: Denies chills or fever(s) Eyes Eyes: Denies blurry vision or change in vision ENT ENT ED: Denies rhinorrhea or sore throat Cardiovascular Cardiovascular: Denies chest pain or palpitations Respiratory/Chest Respiratory/Chest: Denies cough or dyspnea Gastrointestinal Gastrointestinal: Denies nausea or vomiting Genitourinary Genitourinary ED: Denies dysuria or hematuria Musculoskeletal Musculoskeletal: Reports back pain; Denies neck pain Integumentary Reports abscess; Denies rash Neurologic Neurologic: Denies headache(s) or weakness Allergic/Immunologic Allergic/Immunologic ED: Denies mouth swelling or urticaria EXAM Physical Exam Const Vital Signs: 08/07/24 08:24 Temperature 97.6 F L Temperature Source Temporal Pulse Rate 71 Respiratory Rate 16 Blood Pressure 126/84 H Blood Pressure Mean 98 Pulse Ox 98 Oxygen Delivery Method Room Air Positive well nourished and well developed General Appearance ED: well developed and NAD HEENT Reports moist mucous membranes Neck supple and no JVD Resp normal respiratory effort and clear to auscultation bilaterally Cardio regular rate and regular rhythm GI non-tender and non-distended Palpation: soft Back/Spine General Back: CVA tenderness right Neuro oriented x3, CN's II-XII intact bilaterally and no sensory deficits noted Sensorium / Orientation: alert Motor Exam: strength 5/5 throughout Psych mental status grossly normal MDM MDM MDM Narrative Medical decision making narrative: Differential diagnosis includes ureteral calculus, pyelonephritis, inguinal hernia, and inflammatory bowel disease. CBC will be obtained to assess for leukocytosis and anemia. Basic metabolic profile will be obtained to assess for renal function and electrolyte abnormality. CT scan of the abdomen and pelvis will be obtained to assess for ureteral calculus, pyelonephritis, and inguinal hernia. Urinalysis will be obtained to assess for urinary tract infection and hematuria. Lab Data Attestation: I reviewed the patient's lab results. Lab results narrative: CBC was reviewed and was within normal limits. Basic metabolic profile was reviewed. BUN was slightly elevated at 20 and creatinine was 1.20. Urinalysis was reviewed. Occult blood was 250 with greater than 100 red blood cells. Labs: Laboratory Results - last 24 hr 08/07/24 08/07/24 08:38 08:50 WBC 7.6 RBC 4.28 L Hgb 14.0 Hct 40.8 MCV 95.3 H MCH 32.7 H MCHC 34.3 RDW Std Deviation 46.1 H RDW Coeff of Chago 13.2 Plt Count 209 MPV 10.3 Immature Gran % (Auto) 0.300 Neut % (Auto) 56.8 Lymph % (Auto) 26.1 [place] % (Auto) 13.3 H Eos % (Auto) 3.0 Baso % (Auto) 0.5 Absolute Neuts (auto) 4.3 Absolute Lymphs (auto) 1.98 Nucleated RBC % 0 Sodium 138 Potassium 4.4 Chloride 104 Carbon Dioxide 23.8 Anion Gap 11 BUN 20 H Creatinine 1.20 Estim Creat Clear Calc 55.08 Est GFR (MDRD) Non-Af 66 BUN/Creatinine Ratio 16.3 Glucose 100 H Calcium 8.9 Urine Color Yellow Urine Clarity Clear Urine pH 6.0 Ur Specific [place] 1.020 Urine Protein 30 H Urine Glucose (UA) Normal Urine Ketones Negative Urine Occult Blood 250 H Urine Nitrite Negative Urine Bilirubin Negative Urine Urobilinogen Normal Ur Leukocyte Esterase 25 H Urine RBC > 100 SEEN Urine WBC 0-5 SEEN Ur Squamous Epith Cells 0-5 SEEN Calcium Oxalate Crystal 1+ Urine Bacteria 0 SEEN Urine Mucus 0 SEEN Radiography Diagnostic Testing: Clinical Impression(s) from Imaging Studies Abdomen/Pelvis CT 08/07/24 09:06 IMPRESSION: Chronic right-sided obstructive uropathy as above. Reading Location: [facility] CT scan of the abdomen and pelvis was obtained. There is a 4 mm calculus of the mid/distal ureter. There is mild hydronephrosis. There is no other acute abnormality noted. This was interpreted by the radiologist was also independently reviewed by myself. Treatment and Re-Evaluation :: Nicotine cessation was discussed. Patient was given a dose of morphine and Zofran. Patient was given IV fluids. Patient was advised of his findings. Patient was given a prescription for a short course of [place]. Patient was instructed to drink plenty of fluids. Patient was also given a prescription for Flomax. Patient was instructed to follow-up with urology in 5 to 7 days. Patient was instructed to return if worse in any way. Patient understood and was agreeable with the plan. All questions were answered. Discharge Plan Triage Chief Complaint: Flank Pain ED Provider: Juan Pablo Durant Dx/Rx/DC Orders Clinical Impression: Right ureteral calculus, Hematuria Instructions: ED Kidney Stone with Pain Prescriptions: New hydrocodone-acetaminophen 5-325 mg tablet 1 tab PO Q6H PRN PRN (Reason: Pain) 3 Days Qty: 10 0RF tamsulosin 0.4 mg capsule 0.4 mg PO DAILY Qty: 7 0RF No Action amlodipine [Norvasc] 5 MG tablet 5 mg PO DAILY Cholecalciferol (VIT D3) 125 mcg PO DAILY gabapentin 600 MG tablet 600 mg PO QHS cetirizine 10 MG tablet 10 mg PO DAILY levothyroxine 100 MCG tablet 100 mcg PO DAILY pantoprazole 40 MG tablet,delayed release (DR/EC) 40 mg PO DAILY ibuprofen 200 MG tablet 200 mg PO PRN PRN (Reason: pain) Primary Care Provider: Aliyah Caballero Referrals: Aliyah Caballero MD [Primary Care Provider] - 5-7 Days Adam Horton MD [Med Staff - Active Staff] - 5-7 Days Print Language: Nepalese Disposition Disposition: Home, Self Care
--- NOTE | 2024-08-07 09:06 | CT_ITS ---
PROCEDURE: CT abdomen pelvis without IV contrast REASON FOR EXAM: RIGHT FLANK PAIN TECHNIQUE: Multiple contiguous axial images of the abdomen and pelvis were obtained without the administration of intravenous contrast. Two-dimensional coronal and sagittal reformatted images were reconstructed. Low-dose imaging technique was utilized. COMPARISON: 06/28/2020 FINDINGS: Lung bases are clear. Unenhanced liver, spleen, pancreas and adrenal glands are intact. Gallbladder is satisfactory. No significant biliary ductal dilation. Chronic right-sided obstructive uropathy with a 4 mm calculus along the mid/distal ureter resulting in mild hydroureteronephrosis, unchanged from prior. Left extrarenal pelvis. No renal calculi or left hydronephrosis. Urinary bladder is intact. No bowel obstruction, focal bowel wall thickening or significant perienteric inflammation. Normal appendix. No pelvic free fluid. No free air. Calcified nonaneurysmal abdominal aorta. No bulky adenopathy. Small fat containing bilateral inguinal hernias. No acute osseous abnormality. CT/Abdomen/Pelvis without Cont IMPRESSION: Chronic right-sided obstructive uropathy as above. Reading Location: [facility]
[2024-08-07 09:13] LABS: Bacteria 0 SEEN /hpf (None Seen); Mucous, Urine 0 SEEN /hpf (<or=2+)
[2024-08-07 09:16] LABS: Absolute Lymphocyte Count 1.98 X10^3/uL (0.83-4.51); Absolute Neutrophil Count 4.3 X10^3/uL (2.0-7.7); Basophil# 0.04 X10^3/uL; Basophil% 0.5 % (0-1); Eosinophil# 0.23 X10^3/uL; Hematocrit 40.8 % (40-54); Lymphocyte # 1.98 X10^3/ul (0.83-4.51); Lymphocyte % 26.1 % (19-41); Mean Corp Hgb Conc 34.3 g/dL (32-36); Mean Corpuscular Hgb 32.7 pg (27.0-32.0); Mean Corpuscular Volume 95.3 fL (80-94); Mean Platelet Vol. 10.3 fl (6.2-12.0); Monocyte# 1.01 X10^3/uL; Monocyte% 13.3 % (0-10); NRBC Flagged by Analyzer 0 % (0-5); Neutrophil % 56.8 % (47-70); Platelet Count 209 K/mm3 (150-450); RBC Distribution Width CV 13.2 % (11.6-14.6); RBC Distribution Width SD 46.1 fl (35.1-43.9); Red Blood Count 4.28 M/mm3 (4.6-6.2); White Blood Count 7.6 K/mm3 (4.4-11.0)
[2024-08-07] MEDS: Morphine 4 MG/ML Syringe IV (09:16)
[2024-08-07] MEDS: Ondansetron 4 MG/2 ML Vial IV (09:16)
[2024-08-07] MEDS: 0.9% Normal Saline (1000mL) 1,000 ML 1000 ML IV (09:17)
[2024-08-07 09:24] LABS: Color, Urine Yellow (Yellow); Glucose, Dipstick Normal (Normal); Ketone-Dipstick Negative (Negative); Leukocyte Esterase-Dipstick 25 /ul (Negative); Nitrite-Dipstick Negative (Negative); Occult Blood-Urine 250 /ul (Negative); Protein-Dipstick 30 mg/dl (Negative); Urine Bilirubin Dipstick Negative (Negative); Urine Clarity Clear (Clear); Urine Urobilinogen Normal (Normal)
[2024-08-07 09:30] LABS: Anion Gap 11 (5-15); BUN 20 mg/dL (4-19); BUN/Creat Ratio 16.3 RATIO (10-20); Calcium,Total 8.9 mg/dL (7.6-11.0); Carbon Dioxide 23.8 mmol/L (21.0-32.0); Chloride 104 mmol/L (98-108); EST Glomerular Filtration Rate 66 (>60); Estimated Creatinine Clearance 55.08 ml/min (50-250); Glucose 100 mg/dL (70-99); Potassium 4.4 mmol/L (3.3-5.1); Sodium Level 138 mmol/L (133-145)
[2024-08-07 10:04] LABS: Calcium Oxalate Crystals Ur 1+ /hpf (<or=2+); Red Blood Cells-Urine > 100 SEEN /hpf (0-5); Squamous Epithelial Cells - UA 0-5 SEEN /hpf (0-5); White Blood Cells 0-5 SEEN /hpf (0-5)
[2024-08-07 10:50] VITALS: O2SAT 98
[2024-08-07 11:06] VITALS: BP 127/106; PULSE 61; RESP 16; TEMP 36.9; O2SAT 97
== END 2024-08-07 11:11 | disposition home or self-care (01) ==
PROVIDERS: Emergency Provider Emergency Medicine; PCP Internal Medicine; Visit Provider Emergency Medicine
DX: N13.6 Pyonephrosis (principal); F17.210 Nicotine dependence, cigarettes, uncomplicated; F17.290 Nicotine dependence, other tobacco product, uncomplicated; R31.9 Hematuria, unspecified
CPT/HCPCS: 74176; 80048; 81001; 85025; 96361; 96374; 96375; 99283; A4216; J2405

== ENCOUNTER 2024-08-10 10:29 | Emergency (ER) | payer MEDICARE, OTHER, SELFPAY ==
[2024-08-10 10:29] VITALS: BP 114/86; PULSE 68; RESP 14; TEMP 37.2; O2SAT 99; BMI 26.5
--- NOTE | 2024-08-10 10:54 | ED.VIS.GI ---
HPI HPI - GI History of Present Illness Chief Complaint: Flank Pain Informant: patient Abdominal Pain/Flank Pain Onset: Days Context: Gradual Onset Timing: Continuous Location: Right Flank Current Severity: Moderate Maximum Severity: Severe Worsened by: Nothing Relieved by: Nothing Nausea/Vomiting/Emesis GI Symptom: Negative for Nausea or Vomiting Diarrhea/Melena/Hematochezia GI Symptom: Negative for Diarrhea, Melena or Hematochezia Associated Symptoms Associated Symptoms: Negative for Dysuria, Frequency or Hematuria Narrative Narrative: 68-year-old male history of 3 prior kidney stones most recent was diagnosed on Friday with CAT scan and labs. UA was negative. Due to 4 mm mid right distal ureteral stone. Was placed on hydrocodone for pain. Said pain was worse today. His urologist Dr. Nabeel Horton is currently out of town. Patient was on hydrocodone at home for pain. Denies nausea, vomiting or diarrhea. Denies fever. He is able to urinate. He is also currently on Flomax. Prior similar symptoms: Yes Recent Illness/Hospitalization: No PFSH PFSH Medical History Degenerative disc disease, lumbar Celiac disease Osteoporosis Hypothyroid Kidney stones Home Medications ?Medication ?Instructions ?Recorded ?Last Taken ?Type Cholecalciferol (VIT D3) 125 mcg PO DAILY SUPPLEMENT 06/27/20 06/26/20 21:30 History amlodipine 5 mg tablet (Norvasc) 5 mg PO DAILY REYNAULDS 06/27/20 06/26/20 21:30 History cetirizine 10 mg tablet 10 mg PO DAILY allergies 06/27/20 06/26/20 21:30 History gabapentin 600 mg tablet 600 mg PO QHS pain 06/27/20 06/26/20 21:30 History ibuprofen 200 mg tablet 200 mg PO PRN PRN pain 06/27/20 Unknown History levothyroxine 100 mcg tablet 100 mcg PO DAILY thyroid 06/27/20 06/27/20 04:30 History pantoprazole 40 mg tablet,delayed 40 mg PO DAILY Stomach 06/27/20 06/27/20 05:00 History release hydrocodone-acetaminophen 5-325mg 1 tab PO Q6H PRN PRN Pain 3 days 08/07/24 Unknown Rx 5mg-325mg #10 TABLETS tamsulosin 0.4 mg capsule 0.4 mg PO DAILY #7 CAPSULES 08/07/24 Unknown Rx oxycodone-acetaminophen 5 mg-325 1 tab PO Q4H PRN pain 3 days #14 08/10/24 Unknown Rx mg tablet (Percocet) tabs Allergy/AdvReac Type Severity Reaction Status Date / Time Penicillins Allergy Hives Verified 08/10/24 10:30 gluten AdvReac Intermediate Abd Verified 08/10/24 10:30 cramps/diarrhea Social History Smoking Status: Current every day smoker tobacco type: cigarettes and e-cigarettes ROS ROS ED ROS Narrative Right flank pain. Constitutional Constitutional ED: Denies chills or fever(s) ENT ENT ED: Denies ear pain Cardiovascular Cardiovascular: Denies chest pain Respiratory/Chest Respiratory/Chest: Denies cough or dyspnea Gastrointestinal Gastrointestinal: Reports abdominal pain Genitourinary Genitourinary ED: Denies dysuria or hematuria Musculoskeletal Musculoskeletal: Denies arthralgias or back pain Integumentary Denies abscess or Abrasions Neurologic Neurologic: Denies headache(s) or paresthesias Psychiatric Psychiatric: Denies anxiety or depression Endocrine Endocrinology: Denies polydipsia or polyphagia Hematologic/Lymphatic Hematologic/Lymphatic: Denies easy bleeding, easy bruising or lymphadenopathy Allergic/Immunologic Allergic/Immunologic ED: Denies mouth swelling, tongue swelling or urticaria EXAM Physical Exam Narrative Exam Narrative: 60-year-old male lying in bed. Vital signs are stable afebrile. Complaint of right flank pain. No family present in room. H EENT exam pupils round react light. Moist mucous membranes. Lungs clear to auscultation bilaterally. Heart regular rhythm rate about 70 no murmur. Chest wall ribs nontender. Abdomen is soft, nontender, nondistended normal bowel sounds peritoneal signs. No reproducible pain. No obstruction. Back no reproducible pain. Moving all 4 extremities. Neurovascularly intact. Nontender no edema. Neurologically is awake and alert answering questions following commands. No focal motor deficits. Const Vital Signs: 08/10/24 10:29 08/10/24 12:29 Temperature 98.9 F 98.9 F Temperature Source Temporal Temporal Pulse Rate 68 64 Respiratory Rate 14 18 Blood Pressure 114/86 H 134/78 H Blood Pressure Mean 95 96 Pulse Ox 99 98 Oxygen Delivery Method Room Air Room Air Positive well nourished and well developed; Negative for obese, cachectic, contractures or unkempt General Appearance ED: well developed and NAD; Negative for unkempt, cachectic, contractures or pallor Nutritional Appearance: Negative for cachectic or obese HEENT Reports moist mucous membranes normocephalic and atraumatic; Negative for trauma or tenderness Eyes PERRL and EOMs intact bilaterally General Eye ED: Negative for pale conjunctiva or scleral icterus Neck no lymphadenopathy, supple and no JVD General: Negative for tenderness Carotids: Negative for other Resp normal respiratory effort and clear to auscultation bilaterally Effort and Inspection: Negative for respiratory distress Auscultation: Negative for rales, rhonchi, wheezes or diminished lung sounds Cardio regular rate, regular rhythm, S1 normal heart sound, S2 normal heart sound and no murmurs GI non-tender, non-distended and no masses Inspection: Negative for abdominal distention Auscultation: normoactive bowel sounds Palpation: soft; Negative for tender, guarding or rebound tenderness present Back/Spine no CVA tenderness General Back: Negative for CVA tenderness Cervical Spine: Negative for cervical spine tenderness Thoracic Spine / Upper Back: Negative for thoracic spinal tenderness Lumbar Spine / Lower Back: Negative for lumbar spinal tenderness Extremity full ROM General Extremety ED: Negative for edema or tenderness General Extremity: Negative for edema Neuro CN's II-XII intact bilaterally and moves all extremities Sensorium / Orientation: alert, oriented to person, oriented to place and oriented to time; Negative for orientation impaired, confused, lethargic or stuporous Motor Exam: strength 5/5 throughout; Negative for general weakness or strength abnormal Psych mental status grossly normal and thought process normal Appearance: Negative for unkempt Attitude: No agitated Mood & Affect: Negative for depressed, anxious or tearful Skin no wounds General Skin Exam: Negative for jaundice or pallor Lesions: no lesions Rashes: no rashes Trauma: Negative for abrasion Nails: Negative for discolored MDM MDM MDM Narrative Medical decision making narrative: 68-year-old male right flank pain with a known 4 mm kidney stone under a CAT scan and workup done on Friday. UA will be obtained. Will be given Dilaudid for pain Zofran to prevent nausea. Reassess. I do not think he needs rescanned or recurrent lab work other than the UA. Repeat exam patient is doing well at 12:45 PM. Pain is under control. Is comfortable and discharged home. He is almost out of his pain medication I will write him for some additional Percocet. He will follow-up with his urologist. He is currently drinking water. History & Record Review Discussion w/independent historian: Patient Additional record(s) reviewed:: Prior inpatient record, Prior outpatient record, Prior ED visit and Prior labs Lab Data Attestation: I reviewed the patient's lab results. Lab results narrative: UA normal. No white or red cells. No bacteria or nitrates. Labs: Laboratory Results - last 24 hr 08/10/24 10:35 Urine Color Straw Urine Clarity Clear Urine pH 8.0 Ur Specific [place] 1.010 Urine Protein Negative Urine Glucose (UA) Normal Urine Ketones Negative Urine Occult Blood Negative Urine Nitrite Negative Urine Bilirubin Negative Urine Urobilinogen Normal Ur Leukocyte Esterase Negative Urine RBC 0-5 SEEN Urine WBC 0-5 SEEN Ur Squamous Epith Cells 0 SEEN Urine Bacteria 0 SEEN Urine Mucus 0 SEEN Discharge Plan Triage Chief Complaint: Flank Pain ED Provider: Joaquín Sierra Dx/Rx/DC Orders Clinical Impression: Right ureteral calculus Instructions: ED Kidney Stone with Pain Prescriptions: New oxycodone-acetaminophen [Percocet] 5-325 mg tablet 1 tab PO Q4H PRN (Reason: pain) 3 Days Qty: 14 0RF No Action amlodipine [Norvasc] 5 MG tablet 5 mg PO DAILY Cholecalciferol (VIT D3) 125 mcg PO DAILY gabapentin 600 MG tablet 600 mg PO QHS cetirizine 10 MG tablet 10 mg PO DAILY levothyroxine 100 MCG tablet 100 mcg PO DAILY pantoprazole 40 MG tablet,delayed release (DR/EC) 40 mg PO DAILY ibuprofen 200 MG tablet 200 mg PO PRN PRN (Reason: pain) hydrocodone-acetaminophen 5-325 mg tablet 1 tab PO Q6H PRN PRN (Reason: Pain) 3 Days Qty: 10 0RF tamsulosin 0.4 mg capsule 0.4 mg PO DAILY Qty: 7 0RF Primary Care Provider: Aliyah Caballero Referrals: Aliyah Caballero MD [Primary Care Provider] - Adam Horton MD [Med Staff - Active Staff] - Activity Restrictions/Additional Instructions: 4 mm stone on the right. It should pass. Plenty of fluids such as water. Continue your Flomax. Percocet for pain. Do not drive or use alcohol using the Percocet. Plenty of fiber and stool softener to prevent constipation. You may also use limited Motrin like to twice a day till the stone passes. Follow-up with your urologist as needed. Print Language: [place]ian Disposition Disposition: Home, Self Care
[2024-08-10] MEDS: Ondansetron 4 MG/2 ML Vial IV (11:02)
[2024-08-10] MEDS: HYDROmorphone 1 MG/ML Syringe IV (11:03)
[2024-08-10 11:20] LABS: Bacteria 0 SEEN /hpf (None Seen); Mucous, Urine 0 SEEN /hpf (<or=2+); Squamous Epithelial Cells - UA 0 SEEN /hpf (0-5)
[2024-08-10 11:29] LABS: Color, Urine Straw (Yellow); Glucose, Dipstick Normal (Normal); Ketone-Dipstick Negative (Negative); Leukocyte Esterase-Dipstick Negative /ul (Negative); Nitrite-Dipstick Negative (Negative); Occult Blood-Urine Negative /ul (Negative); Protein-Dipstick Negative (Negative); Urine Bilirubin Dipstick Negative (Negative); Urine Clarity Clear (Clear); Urine Urobilinogen Normal (Normal)
[2024-08-10 11:52] LABS: Red Blood Cells-Urine 0-5 SEEN /hpf (0-5); White Blood Cells 0-5 SEEN /hpf (0-5)
[2024-08-10 12:29] VITALS: BP 134/78; PULSE 64; RESP 18; TEMP 37.2; O2SAT 98
[2024-08-10] MEDS: morphine 8 MG/ML Syringe 6 MG IV (13:23)
[2024-08-10 13:30] VITALS: BP 134/78; PULSE 64; RESP 18; TEMP 36.6; O2SAT 99
== END 2024-08-10 13:32 | disposition home or self-care (01) ==
PROVIDERS: Emergency Provider Emergency Medicine; PCP Internal Medicine; Visit Provider Emergency Medicine
DX: N20.2 Calculus of kidney with calculus of ureter (principal); R10.9 Unspecified abdominal pain; F17.210 Nicotine dependence, cigarettes, uncomplicated; F17.290 Nicotine dependence, other tobacco product, uncomplicated
CPT/HCPCS: 81001; 96374; 96375; 99284; A4216; J2405

== ENCOUNTER → 2024-08-16 | Outpatient (CLI) | payer MEDICARE, OTHER, SELFPAY ==
[2024-08-16 16:25] LABS: Calcium 9.4 mg/dL (7.6-11.0); Magnesium 2.1 mg/dL (1.5-2.2); Phosphorus 3.4 mg/dL (2.7-4.5)
== END | disposition home or self-care (01) ==
PROVIDERS: PCP Internal Medicine; Referring Provider Urology; Visit Provider Urology
DX: N20.1 Calculus of ureter (principal)
CPT/HCPCS: 36415; 82310; 82360; 83735; 84100

== ENCOUNTER → 2024-08-18 | Outpatient (CLI) | payer MEDICARE, OTHER, SELFPAY ==
[2024-08-18 13:58] LABS: 24HR UR TOTAL VOLUME 1600 ml
[2024-08-22 16:00] LABS: Urine Potassium 42.8 mmol/L (Not Establ.); Urine Sodium 88 mmol/L (Not Establ.)
[2024-08-22 16:07] LABS: Urine Chloride 80 mmol/L (Not Establ.)
[2024-08-22 16:08] LABS: Sodium 24 HR UR 88 mmol/24h (40-220); Urine Chloride / 24 Hours 80 mmol/24h (110-250); Urine Potassium/ 24 Hours 42.8 mmol/24h (25-125)
== END | disposition home or self-care (01) ==
LOC: LAB 07:25 → LABSPEC 07:29
PROVIDERS: PCP Internal Medicine; Referring Provider Urology; Visit Provider Urology
DX: N20.1 Calculus of ureter (principal)
CPT/HCPCS: 81050; 82340; 82436; 84133; 84300

== ENCOUNTER → 2024-08-26 | Outpatient (CLI) | payer MEDICARE, OTHER, SELFPAY | END | disposition home or self-care (01) | LOC: LABSPEC 08:22 | PROVIDERS: PCP Internal Medicine; Referring Provider Urology; Visit Provider Urology | DX: N20.1 Calculus of ureter (principal) | CPT/HCPCS: 81050 ==

== ENCOUNTER → 2024-11-15 | Outpatient (CLI) | payer MEDICARE, OTHER, SELFPAY ==
[2024-11-15 16:19] LABS: PSA,Total - Annual Screen 0.59 ng/mL (0.02-4.00)
== END | disposition home or self-care (01) ==
LOC: LAB 14:23
PROVIDERS: PCP Internal Medicine; Referring Provider Nurse Practitioner; Visit Provider Nurse Practitioner
DX: Z12.5 Encounter for screening for malignant neoplasm of prostate (principal)
CPT/HCPCS: 36415; 84153; G0103